=== PATIENT | male | born 1990 | race Caucasian/White ===

== ENCOUNTER 2017-10-29 16:08 | Inpatient (IN) | payer BC ==
[~2017-10-29] VITALS: Ht 182.9 cm; Wt 182.4 kg
[2017-10-29 16:41] VITALS: Ht 182.9 cm; Wt 182.4 kg
[2017-10-30] VITALS (8 sets, daily range): BP systolic 110–177; BP diastolic 68–80
[2017-10-30 02:10] LABS: BASOPHIL % 0.3 % (0-2); PLATELET COUNT 206 x10^3mcL (130-400); RED CELL DISTRIBUTION WIDTH 13.2 % (11.5-14.5)
[2017-10-30 02:25] LABS: CALCIUM 8.9 mg/dL (8.5-10.1); CARBON DIOXIDE 27.2 mmol/L (21-32); CHLORIDE SERUM 101 mmol/L (98-107); CREATININE SERUM 1.2 mg/dL (0.7-1.3); GFR1 > 60 mL/min; GLUCOSE SERUM 140 mg/dL (74-106); POTASSIUM SERUM 3.3 mmol/L (3.5-5.1); SODIUM SERUM 138 mmol/L (136-145)
[2017-10-30 02:30] LABS: ALBUMIN 3.6 g/dL (3.4-5.0); ALKALINE PHOSPHATASE 62 U/L (46-116); ALT/SGPT 78 U/L (16-63); AST/SGOT 38 U/L (15-37); BILIRUBIN TOTAL 0.56 mg/dL (0.20-1.00); TOTAL PROTEIN, SERUM 7.5 g/dL (6.4-8.2)
[2017-10-30 04:42] LABS: UA SPECIFIC GRAVITY >=1.030 (1.005-1.035); microscopic required? YES; urine erythrocyte NEGATIVE (NEGATIVE)
[2017-10-30 04:58] LABS: AMPHETAMINE QUAL UR NONE DETECTED (NEG <=1000)
[2017-10-30 07:11] LABS: FREE T4 0.96 ng/dL (0.76-1.46); FREE THYROXINE INDEX 2.3 ug/dL (1.4-4.5)
[2017-10-30 07:12] LABS: CHOLESTEROL/HDL RATIO 4.6; PHOSPHOROUS 4.9 mg/dL (2.5-4.9)
[2017-10-30 07:39] LABS: PLATELET COUNT 185 x10^3mcL (130-400); RED CELL DISTRIBUTION WIDTH 13.1 % (11.5-14.5)
[2017-10-30 08:00] LABS: CALCIUM 8.5 mg/dL (8.5-10.1); CARBON DIOXIDE 27.5 mmol/L (21-32); CHLORIDE SERUM 101 mmol/L (98-107); CREATININE SERUM 1.2 mg/dL (0.7-1.3); GFR1 > 60 mL/min; GLUCOSE SERUM 141 mg/dL (74-106); MAGNESIUM 1.9 mg/dL (1.8-2.4); PHOSPHOROUS 3.9 mg/dL (2.5-4.9); POTASSIUM SERUM 3.4 mmol/L (3.5-5.1); SODIUM SERUM 138 mmol/L (136-145)
[2017-10-30 08:47] LABS: T3 TOTAL 0.7 ng/mL
[2017-10-30 13:45] LABS: BAND NEUTROPHIL 14 % (0-10)
[2017-10-30 13:46] LABS: ATYPICAL LYMPH 5 %; MONOCYTE 18 % (0-7)
[2017-10-30 13:49] LABS: SEGMENTED NEUTROPHILS 32 % (37-75); rbc morphology (normal/abnorm) NORMAL (NORMAL)
[2017-10-30 13:50] LABS: PLATELET MORPHOLOGY PLATELETS NORMAL
[2017-10-31 05:48] VITALS: BP 142/67
[2017-10-31 06:54] LABS: BASOPHIL % 0.6 % (0-2); PLATELET COUNT 199 x10^3mcL (130-400); RED CELL DISTRIBUTION WIDTH 13.5 % (11.5-14.5)
[2017-10-31 07:32] LABS: CALCIUM 8.2 mg/dL (8.5-10.1); CARBON DIOXIDE 23.9 mmol/L (21-32); CHLORIDE SERUM 103 mmol/L (98-107); CREATININE SERUM 1.1 mg/dL (0.7-1.3); GFR1 > 60 mL/min; GLUCOSE SERUM 170 mg/dL (74-106); POTASSIUM SERUM 3.6 mmol/L (3.5-5.1); SODIUM SERUM 132 mmol/L (136-145)
[2017-10-31 08:06] VITALS: BP 121/78
[2017-10-31] MEDS ORDERED: TAMIFLU30 MG PO (10:51)
[2017-10-31] MEDS ORDERED: DAYTIME-COLD N1 EACH PO (10:52)
[2017-10-31] MEDS ORDERED: LEVAQUIN750 MG PO (10:55)
[2017-10-31 12:09] VITALS: BP 121/78
[2017-10-31] MEDS ORDERED: HIB240 TOP (12:47)
[2017-10-31] MEDS ORDERED: BACTROBAN21 (12:47)
== END 2017-10-31 12:55 | disposition home or self-care (01) | DRG 152 ==
LOC: ED 16:08 → DU 10-30 02:43
PROVIDERS: Emergency Medicine; Student in an Organized Health Care Education/Training Program
PROC: 3E0234Z Introduction of Serum, Toxoid and Vaccine into Muscle, Percutaneous Approach (ICD-10-PCS; principal; 2017-10-30)
DX: J11.1 Influenza due to unidentified influenza virus with other respiratory manifestations (principal); E43 Unspecified severe protein-calorie malnutrition; Z68.43 Body mass index [BMI] 50.0-59.9, adult; E66.01 Morbid (severe) obesity due to excess calories; E87.6 Hypokalemia; M10.9 Gout, unspecified; Z23 Encounter for immunization
CPT/HCPCS: 83880; 84439; 87804; 90658; 94150; J1956; J3490; J7030; J7620; Q0092